=== PATIENT | male | born 1950 | race Two or more races ===

== ENCOUNTER 2020-11-25 12:37 | Inpatient (IN) | payer MEDICARE, OTHER ==
[~2020-11-25] VITALS: Ht 182.9 cm; Wt 145.1 kg
[2020-11-25] MEDS ORDERED: AZITHROMYCIN 500MG/ 250ML 250 ML IV ONE (12:45)
[2020-11-25] MEDS ORDERED: methylPREDNISolone SOD SUCC 125 MG/2 ML VL IV ONE (12:45)
[2020-11-25 13:13] LABS: Basophils # (auto) 0.1 10 ^3/uL (0-0.2); Basophils % (auto) 0.7 % (0.0-2.0); Eosinophils # (auto) 0 10 ^3/uL (0-0.8); Eosinophils % (auto) 0.1 % (0.0-7.0); Hematocrit 45.2 % (41.0-53.0); Hemoglobin 15.4 g/dL (13.5-17.5); Lymphocytes # (auto) 0.5 10 ^3/uL (0.4-5.4); Lymphocytes % (auto) 3.4 % (10.0-50.0); Mean Corpuscular Hemoglobin 29.2 pg (28.0-32.0); Mean Corpuscular Hgb Conc. 34.2 g/dL (32.0-36.0); Mean Corpuscular Volume 85.3 fL (80.0-100.0); Monocytes # (auto) 0.7 10 ^3/uL (0-1.3); Monocytes % (auto) 5.2 % (0.0-12.0); Neutrophils # (auto) 12.7 10 ^3/uL (1.6-8.6); Neutrophils % (auto) 90.6 % (37.0-80.0); Nucleated Red Blood Cells % 0.1 %; Red Cell Distribution Width 14.2 % (11.8-14.3)
[2020-11-25 13:30] LABS: Potassium 3.7 mmol/L (3.5-5.1)
[2020-11-25 13:39] LABS: Albumin 2.7 g/dL (3.4-5.0); BUN/Creatinine Ratio 23.1; Calcium 7.9 mg/dL (8.5-10.1); Magnesium 2.1 mg/dL (1.6-2.6); Total Protein 7.5 g/dL (6.4-8.2)
[2020-11-25] MEDS ORDERED: REMDESIVIR PER PHARMACY 0 ML IV SCH (16:30)
[2020-11-25] MEDS ORDERED: NITROGLYCERIN 0.4 MG SL TAB SL PRN (16:30)
[2020-11-25] MEDS ORDERED: MORPHINE SULFATE INJECTION 2 MG/ML SYRG IV PRN (16:30)
[2020-11-25] MEDS ORDERED: KETOROLAC TROMETH 30 MG/ML 1ML VIAL IV ONE (17:30)
[2020-11-25] MEDS ORDERED: ONDANSETRON HCL 4 MG/2 ML VIAL IV PRN (17:30)
[2020-11-25] MEDS ORDERED: IOHEXOL 350 MG/ML 100ML IJ ONE (18:32)
[2020-11-25 19:01] VITALS: BP 132/99
[2020-11-25] MEDS: cefTRIAXone 1GM/50ML D5W 50 ML IV SCH (21:18)
[2020-11-25] MEDS: BUDESONIDE (INHALATION) 180 MCG IH IN SCH (22:00)
[2020-11-25] MEDS ORDERED: REMDESIVIR 200 MG in NS 210ml LOADING DOSE ADULT IV ONE (22:00)
[2020-11-25] MEDS: ENOXAPARIN SOD 100 MG/1 ML SYRINGE SC SCH (22:20)
[2020-11-26] VITALS (34 sets, daily range): BP systolic 111–170; BP diastolic 71–119
[2020-11-26 06:03] LABS: Urine Bacteria FEW /hpf (None Seen); Urine Blood TRACE /uL (Negative); Urine Hyaline Cast MANY /lpf (0 - 2); Urine Mucus FEW (None Seen); Urine Specific Gravity 1.026 (1.001-1.035); Urine WBC 4 /hpf (0 - 3)
[2020-11-26] MEDS ORDERED: IVERMECTIN 3 MG TAB PO ONE (07:00)
[2020-11-26 07:02] LABS: Basophils # (auto) 0.1 10 ^3/uL (0-0.2); Basophils % (auto) 0.8 % (0.0-2.0); Eosinophils # (auto) 0 10 ^3/uL (0-0.8); Hematocrit 43.5 % (41.0-53.0); Lymphocytes # (auto) 0.6 10 ^3/uL (0.4-5.4); Lymphocytes % (auto) 4.2 % (10.0-50.0); Mean Corpuscular Hemoglobin 29.1 pg (28.0-32.0); Mean Corpuscular Hgb Conc. 34.6 g/dL (32.0-36.0); Mean Corpuscular Volume 84.3 fL (80.0-100.0); Monocytes # (auto) 1.1 10 ^3/uL (0-1.3); Monocytes % (auto) 7.6 % (0.0-12.0); Neutrophils # (auto) 13.1 10 ^3/uL (1.6-8.6); Neutrophils % (auto) 87.4 % (37.0-80.0); Red Blood Cells 5.16 10^6/uL (4.5-5.90); Red Cell Distribution Width 14.1 % (11.8-14.3)
[2020-11-26 07:18] LABS: Albumin 2.5 g/dL (3.4-5.0); Calcium 7.8 mg/dL (8.5-10.1); Potassium 4.1 mmol/L (3.5-5.1)
[2020-11-26 07:22] LABS: BUN/Creatinine Ratio 30.2; Bilirubin, Total 0.6 mg/dL (0.2-1.0); Total Protein 6.8 g/dL (6.4-8.2)
[2020-11-26] MEDS: ASCORBIC ACID 1,000 MG TAB PO SCH (09:47)
[2020-11-26] MEDS: DexAMETHasone SOD PHOS 10MG/1ML VIAL INJ IV SCH (09:47)
[2020-11-26] MEDS: cefTRIAXone 1GM/50ML D5W 50 ML IV SCH (09:47)
[2020-11-26] MEDS: ZINC SULFATE 220mg CAP or TAB PO SCH (09:47)
[2020-11-26] MEDS: CHOLECALCIFEROL (VITD3) 2,000 UNIT CAP/TAB PO SCH (09:47)
[2020-11-26] MEDS: ENOXAPARIN SOD 100 MG/1 ML SYRINGE SC SCH ×2 (09:48→21:21)
[2020-11-26] MEDS: ALBUTEROL SULF HFA 90MCG INH 200DOSE IN PRN ×2 (10:52→19:00)
[2020-11-26] MEDS: BUDESONIDE (INHALATION) 180 MCG IH IN SCH ×2 (10:52→19:00)
[2020-11-26] MEDS: AZITHROMYCIN 500MG/ 250ML 250 ML IV SCH (11:00)
[2020-11-26] MEDS ORDERED: POTASSIUM CHL 20 Meq TABLET PO ONE (12:30)
[2020-11-26] MEDS ORDERED: FUROSEMIDE 20 MG/2 ML VIAL IV ONE (12:30)
[2020-11-26] MEDS ORDERED: diphenhdrAMINE HCL 50 MG/1 ML VL IV ONE (13:30)
[2020-11-26] MEDS ORDERED: ACETAMINOPHEN 650 mg PER 20.3 mL UD PO ONE (13:30)
[2020-11-26] MEDS ORDERED: methylPREDNISolone SOD SUCC 40 MG/ML VL IV ONE (13:30)
[2020-11-26] MEDS ORDERED: TOCILIZUMAB 400 MG in SODIUM CHL 0.9% 80 ML IV ONE (14:00)
[2020-11-26] MEDS: IVERMECTIN 3 MG TAB PO SCH (16:30)
[2020-11-26] MEDS: REMDESIVIR 100mg 100 MG in SODIUM CHL 0.9% 230 ML IV SCH (17:37)
[2020-11-26] MEDS: Ensure HIGH Protein Chocolate 8oz Bottle PO SCH (18:00)
[2020-11-26] MEDS: LORazepam 2MG/ML-1ML VIAL IV PRN (21:35)
[2020-11-27] VITALS (36 sets, daily range): BP systolic 116–157; BP diastolic 66–114
[2020-11-27 06:16] LABS: Basophils # (auto) 0 10 ^3/uL (0-0.2); Basophils % (auto) 0.1 % (0.0-2.0); Eosinophils # (auto) 0 10 ^3/uL (0-0.8); Hematocrit 39.8 % (41.0-53.0); Lymphocytes # (auto) 0.7 10 ^3/uL (0.4-5.4); Lymphocytes % (auto) 5.1 % (10.0-50.0); Mean Corpuscular Hemoglobin 29.4 pg (28.0-32.0); Mean Corpuscular Hgb Conc. 35.2 g/dL (32.0-36.0); Mean Corpuscular Volume 83.6 fL (80.0-100.0); Monocytes % (auto) 6.8 % (0.0-12.0); Neutrophils # (auto) 12.4 10 ^3/uL (1.6-8.6); Red Blood Cells 4.76 10^6/uL (4.5-5.90); Red Cell Distribution Width 13.8 % (11.8-14.3); White Blood Cell 14.1 10^3/uL (4.4-10.8)
[2020-11-27] MEDS: BUDESONIDE (INHALATION) 180 MCG IH IN SCH ×2 (06:22→22:20)
[2020-11-27] MEDS: ALBUTEROL SULF HFA 90MCG INH 200DOSE IN PRN ×2 (06:22→22:20)
[2020-11-27 06:36] LABS: Albumin 2.3 g/dL (3.4-5.0); Calcium 7.9 mg/dL (8.5-10.1); Potassium 3.9 mmol/L (3.5-5.1)
[2020-11-27 06:41] LABS: BUN/Creatinine Ratio 35.7; Bilirubin, Total 0.5 mg/dL (0.2-1.0)
[2020-11-27] MEDS: Ensure HIGH Protein Chocolate 8oz Bottle PO SCH ×3 (08:22→18:00)
[2020-11-27] MEDS: cefTRIAXone 1GM/50ML D5W 50 ML IV SCH (09:00)
[2020-11-27] MEDS: POTASSIUM CHL 20 Meq TABLET PO SCH (09:50)
[2020-11-27] MEDS: CHOLECALCIFEROL (VITD3) 2,000 UNIT CAP/TAB PO SCH (09:50)
[2020-11-27] MEDS: ZINC SULFATE 220mg CAP or TAB PO SCH (09:50)
[2020-11-27] MEDS: ENOXAPARIN SOD 100 MG/1 ML SYRINGE SC SCH ×2 (09:50→21:00)
[2020-11-27] MEDS: ASCORBIC ACID 1,000 MG TAB PO SCH (09:50)
[2020-11-27] MEDS: IVERMECTIN 3 MG TAB PO SCH (09:50)
[2020-11-27] MEDS: FUROSEMIDE 20 MG/2 ML VIAL IV SCH (09:50)
[2020-11-27] MEDS ORDERED: ACETAMINOPHEN 650 mg PER 20.3 mL UD PO ONE (10:00)
[2020-11-27] MEDS ORDERED: diphenhdrAMINE HCL 50 MG/1 ML VL IV ONE (10:00)
[2020-11-27] MEDS ORDERED: TOCILIZUMAB 400 MG in SODIUM CHL 0.9% 80 ML IV ONE (10:30)
[2020-11-27] MEDS ORDERED: PROMETHAZINE W/CODEINE 5 ML ORAL SYRUP PO PRN (11:00)
[2020-11-27] MEDS: DexAMETHasone SOD PHOS 10MG/1ML VIAL INJ IV SCH (11:04)
[2020-11-27] MEDS: AZITHROMYCIN 500MG/ 250ML 250 ML IV SCH (11:51)
[2020-11-27] MEDS: REMDESIVIR 100mg 100 MG in SODIUM CHL 0.9% 230 ML IV SCH (15:00)
[2020-11-27] MEDS: LORazepam 2MG/ML-1ML VIAL IV PRN (21:00)
[2020-11-28] VITALS (17 sets, daily range): BP systolic 122–155; BP diastolic 59–96
[2020-11-28 06:18] LABS: Basophils # (auto) 0 10 ^3/uL (0-0.2); Basophils % (auto) 0.2 % (0.0-2.0); Eosinophils # (auto) 0 10 ^3/uL (0-0.8); Eosinophils % (auto) 0.3 % (0.0-7.0); Hemoglobin 14.5 g/dL (13.5-17.5); Lymphocytes # (auto) 0.7 10 ^3/uL (0.4-5.4); Lymphocytes % (auto) 6.4 % (10.0-50.0); Mean Corpuscular Hemoglobin 29.2 pg (28.0-32.0); Mean Corpuscular Hgb Conc. 34.5 g/dL (32.0-36.0); Mean Corpuscular Volume 84.6 fL (80.0-100.0); Monocytes # (auto) 0.4 10 ^3/uL (0-1.3); Monocytes % (auto) 3.6 % (0.0-12.0); Neutrophils # (auto) 9.3 10 ^3/uL (1.6-8.6); Neutrophils % (auto) 89.5 % (37.0-80.0); Nucleated Red Blood Cells % 0.1 %; Red Blood Cells 4.97 10^6/uL (4.5-5.90); Red Cell Distribution Width 14.4 % (11.8-14.3); White Blood Cell 10.4 10^3/uL (4.4-10.8)
[2020-11-28] MEDS: ALBUTEROL SULF HFA 90MCG INH 200DOSE IN PRN ×2 (06:26→22:25)
[2020-11-28] MEDS: BUDESONIDE (INHALATION) 180 MCG IH IN SCH ×2 (06:27→22:25)
[2020-11-28 06:38] LABS: Potassium 4.6 mmol/L (3.5-5.1)
[2020-11-28 06:55] LABS: Albumin 2.5 g/dL (3.4-5.0); BUN/Creatinine Ratio 27.3; Bilirubin, Total 0.7 mg/dL (0.2-1.0); Calcium 7.7 mg/dL (8.5-10.1); Total Protein 6.3 g/dL (6.4-8.2)
[2020-11-28] MEDS: cefTRIAXone 1GM/50ML D5W 50 ML IV SCH (08:51)
[2020-11-28] MEDS: Ensure HIGH Protein Chocolate 8oz Bottle PO SCH ×3 (09:23→18:00)
[2020-11-28] MEDS: ENOXAPARIN SOD 100 MG/1 ML SYRINGE SC SCH ×2 (10:03→20:14)
[2020-11-28] MEDS: FUROSEMIDE 20 MG/2 ML VIAL IV SCH ×2 (10:03→20:13)
[2020-11-28] MEDS: ASCORBIC ACID 1,000 MG TAB PO SCH (10:04)
[2020-11-28] MEDS: IVERMECTIN 3 MG TAB PO SCH (10:04)
[2020-11-28] MEDS: CHOLECALCIFEROL (VITD3) 2,000 UNIT CAP/TAB PO SCH (10:04)
[2020-11-28] MEDS: ZINC SULFATE 220mg CAP or TAB PO SCH (10:04)
[2020-11-28] MEDS: POTASSIUM CHL 20 Meq TABLET PO SCH ×2 (10:04→20:14)
[2020-11-28] MEDS: AZITHROMYCIN 500MG/ 250ML 250 ML IV SCH (10:05)
[2020-11-28] MEDS: DexAMETHasone SOD PHOS 10MG/1ML VIAL INJ IV SCH (10:05)
[2020-11-28] MEDS: REMDESIVIR 100mg 100 MG in SODIUM CHL 0.9% 230 ML IV SCH (15:16)
[2020-11-28] MEDS: LORazepam 2MG/ML-1ML VIAL IV PRN (21:08)
[2020-11-29] VITALS (27 sets, daily range): BP systolic 88–150; BP diastolic 45–98
[2020-11-29 05:57] LABS: Albumin 2.6 g/dL (3.4-5.0); Calcium 7.6 mg/dL (8.5-10.1); Magnesium 2.3 mg/dL (1.6-2.6); Potassium 4.6 mmol/L (3.5-5.1)
[2020-11-29 06:01] LABS: BUN/Creatinine Ratio 24.4; Bilirubin, Total 0.9 mg/dL (0.2-1.0)
[2020-11-29] MEDS: BUDESONIDE (INHALATION) 180 MCG IH IN SCH ×2 (06:13→22:26)
[2020-11-29] MEDS: ALBUTEROL SULF HFA 90MCG INH 200DOSE IN PRN ×2 (06:13→22:26)
[2020-11-29] MEDS: Ensure HIGH Protein Chocolate 8oz Bottle PO SCH ×3 (08:39→18:50)
[2020-11-29] MEDS: cefTRIAXone 1GM/50ML D5W 50 ML IV SCH (08:59)
[2020-11-29] MEDS: POTASSIUM CHL 20 Meq TABLET PO SCH (09:22)
[2020-11-29] MEDS: ZINC SULFATE 220mg CAP or TAB PO SCH (09:22)
[2020-11-29] MEDS: ASCORBIC ACID 1,000 MG TAB PO SCH (09:23)
[2020-11-29] MEDS: CHOLECALCIFEROL (VITD3) 2,000 UNIT CAP/TAB PO SCH (09:23)
[2020-11-29] MEDS: DexAMETHasone SOD PHOS 10MG/1ML VIAL INJ IV SCH (10:35)
[2020-11-29] MEDS: ENOXAPARIN SOD 100 MG/1 ML SYRINGE SC SCH (10:36)
[2020-11-29] MEDS: FUROSEMIDE 20 MG/2 ML VIAL IV SCH (10:36)
[2020-11-29] MEDS: IVERMECTIN 3 MG TAB PO SCH (10:36)
[2020-11-29] MEDS: AZITHROMYCIN 500MG/ 250ML 250 ML IV SCH (10:36)
[2020-11-29] MEDS ORDERED: CLINIMIX PER PHARMACY 0 ML IV SCH (12:00)
[2020-11-29] MEDS: REMDESIVIR 100mg 100 MG in SODIUM CHL 0.9% 230 ML IV SCH (14:57)
[2020-11-29] MEDS: LORazepam 2MG/ML-1ML VIAL IV PRN ×2 (16:40→20:30)
[2020-11-29] MEDS ORDERED: AMINO ACID INFUSION IN D10W 1,000 ML IV NR (20:00)
[2020-11-29] MEDS: traMADol HCL 50 MG TAB PO PRN (21:06)
[2020-11-30] VITALS (7 sets, daily range): BP systolic 119–150; BP diastolic 68–90
[2020-11-30] MEDS ORDERED: DEXTROSE (50%) 50ML SYRG IV SCH
[2020-11-30] MEDS: ENOXAPARIN SOD 100 MG/1 ML SYRINGE SC SCH ×3 (03:12→21:37)
[2020-11-30] MEDS: POTASSIUM CHL 20 Meq TABLET PO SCH ×3 (03:12→21:37)
[2020-11-30] MEDS: FUROSEMIDE 20 MG/2 ML VIAL IV SCH ×3 (03:12→21:36)
[2020-11-30] MEDS: MORPHINE SULFATE INJECTION 2 MG/ML SYRG IV PRN ×2 (03:14→23:51)
[2020-11-30 05:46] LABS: Albumin 2.9 g/dL (3.4-5.0); BUN/Creatinine Ratio 26.8; Calcium 8.3 mg/dL (8.5-10.1); Magnesium 2.4 mg/dL (1.6-2.6); Potassium 4.4 mmol/L (3.5-5.1)
[2020-11-30 05:50] LABS: Bilirubin, Total 0.5 mg/dL (0.2-1.0); Phosphorus 4.5 mg/dL (2.5-4.90); Total Protein 6.7 g/dL (6.4-8.2)
[2020-11-30] MEDS: ACCU-CHEK COMFORT CURVE STRIP VI SCH ×5 (06:00→23:54)
[2020-11-30] MEDS: InsuLIN REG 1unit/0.01ml Soln (100units/ml) SC SCH ×5 (06:00→23:52)
[2020-11-30] MEDS: ALBUTEROL SULF HFA 90MCG INH 200DOSE IN PRN (06:19)
[2020-11-30] MEDS: BUDESONIDE (INHALATION) 180 MCG IH IN SCH ×2 (06:20→22:00)
[2020-11-30] MEDS: Ensure HIGH Protein Chocolate 8oz Bottle PO SCH ×3 (07:58→18:19)
[2020-11-30] MEDS: cefTRIAXone 1GM/50ML D5W 50 ML IV SCH (09:08)
[2020-11-30] MEDS: ZINC SULFATE 220mg CAP or TAB PO SCH (09:08)
[2020-11-30] MEDS: ASCORBIC ACID 1,000 MG TAB PO SCH (09:09)
[2020-11-30] MEDS: IVERMECTIN 3 MG TAB PO SCH (09:09)
[2020-11-30] MEDS: CHOLECALCIFEROL (VITD3) 2,000 UNIT CAP/TAB PO SCH (09:09)
[2020-11-30] MEDS: AZITHROMYCIN 500MG/ 250ML 250 ML IV SCH (10:34)
[2020-11-30] MEDS: DexAMETHasone SOD PHOS 10MG/1ML VIAL INJ IV SCH (11:15)
[2020-11-30] MEDS ORDERED: AMINO ACID INFUSION IN D10W 1,000 ML IV NR (20:00)
[2020-11-30] MEDS: ZOLPIDEM TARTRATE 5 MG TAB PO PRN (21:36)
[2020-12-01] VITALS (9 sets, daily range): BP systolic 107–126; BP diastolic 66–83
[2020-12-01 05:46] LABS: Potassium 4.5 mmol/L (3.5-5.1)
[2020-12-01 05:47] LABS: Lactic Acid w/Reflex 2.1 mmol/L (0.4-2.0)
[2020-12-01 05:54] LABS: Albumin 2.8 g/dL (3.4-5.0); BUN/Creatinine Ratio 32.9; Bilirubin, Total 0.5 mg/dL (0.2-1.0); CRP High Sensitivity 0.55 mg/dL (< 0.3); Calcium 8.6 mg/dL (8.5-10.1); Magnesium 2.3 mg/dL (1.6-2.6); Phosphorus 4.3 mg/dL (2.5-4.90); Total Protein 6.4 g/dL (6.4-8.2)
[2020-12-01 05:58] LABS: Hematocrit 43.7 % (41.0-53.0); Mean Corpuscular Hemoglobin 29.1 pg (28.0-32.0); Mean Corpuscular Hgb Conc. 34.3 g/dL (32.0-36.0); Red Blood Cells 5.15 10^6/uL (4.5-5.90); Red Cell Distribution Width 14.2 % (11.8-14.3); White Blood Cell 15.9 10^3/uL (4.4-10.8)
[2020-12-01] MEDS: InsuLIN REG 1unit/0.01ml Soln (100units/ml) SC SCH ×3 (06:00→17:57)
[2020-12-01] MEDS: ACCU-CHEK COMFORT CURVE STRIP VI SCH ×3 (06:00→17:57)
[2020-12-01 06:04] LABS: Band Neutrophils % (manual) 0; Basophils % (manual) 0 (0.0-2.0); Blast Cells 0; Eosinophils % (manual) 0 (0-7); Metamyelocytes % 0; Myelocytes % 0; Promyelocytes % 0; Reactive Lymphocytes 0
[2020-12-01 06:42] LABS: Lymphocytes % (manual) 2 (10.0-50.0); Monocytes % (manual) 4 (0-12)
[2020-12-01] MEDS: BUDESONIDE (INHALATION) 180 MCG IH IN SCH ×2 (07:30→19:04)
[2020-12-01] MEDS: Ensure HIGH Protein Chocolate 8oz Bottle PO SCH ×3 (07:45→17:56)
[2020-12-01] MEDS: MORPHINE SULFATE INJECTION 2 MG/ML SYRG IV PRN ×2 (08:30→20:33)
[2020-12-01] MEDS: cefTRIAXone 1GM/50ML D5W 50 ML IV SCH (09:26)
[2020-12-01] MEDS: FUROSEMIDE 20 MG/2 ML VIAL IV SCH ×2 (09:26→22:00)
[2020-12-01] MEDS: DexAMETHasone SOD PHOS 10MG/1ML VIAL INJ IV SCH (09:26)
[2020-12-01] MEDS: ZINC SULFATE 220mg CAP or TAB PO SCH (09:28)
[2020-12-01] MEDS: CHOLECALCIFEROL (VITD3) 2,000 UNIT CAP/TAB PO SCH (09:29)
[2020-12-01] MEDS: ASCORBIC ACID 1,000 MG TAB PO SCH (09:29)
[2020-12-01] MEDS: POTASSIUM CHL 20 Meq TABLET PO SCH ×2 (09:29→22:00)
[2020-12-01] MEDS: ENOXAPARIN SOD 100 MG/1 ML SYRINGE SC SCH ×2 (09:29→22:00)
[2020-12-01] MEDS: traMADol HCL 50 MG TAB PO PRN ×2 (14:15→22:45)
[2020-12-01] MEDS: ALBUTEROL SULF HFA 90MCG INH 200DOSE IN PRN (19:04)
[2020-12-01] MEDS ORDERED: AMINO ACID INFUSION IN D10W 1,000 ML IV NR (20:00)
[2020-12-02] VITALS (10 sets, daily range): BP systolic 107–137; BP diastolic 65–89
[2020-12-02 05:41] LABS: Potassium 4.8 mmol/L (3.5-5.1)
[2020-12-02 05:47] LABS: BUN/Creatinine Ratio 35.6; Bilirubin, Total 0.6 mg/dL (0.2-1.0); Calcium 8.4 mg/dL (8.5-10.1); Magnesium 2.4 mg/dL (1.6-2.6); Phosphorus 4.6 mg/dL (2.5-4.90); Total Protein 6.8 g/dL (6.4-8.2)
[2020-12-02] MEDS: ACCU-CHEK COMFORT CURVE STRIP VI SCH ×4 (06:00→17:57)
[2020-12-02] MEDS: InsuLIN REG 1unit/0.01ml Soln (100units/ml) SC SCH ×4 (06:00→18:00)
[2020-12-02] MEDS: ALBUTEROL SULF HFA 90MCG INH 200DOSE IN PRN ×2 (06:28→22:12)
[2020-12-02] MEDS: BUDESONIDE (INHALATION) 180 MCG IH IN SCH ×2 (06:28→22:12)
[2020-12-02] MEDS: FUROSEMIDE 20 MG/2 ML VIAL IV SCH ×2 (09:21→22:02)
[2020-12-02] MEDS: DexAMETHasone SOD PHOS 10MG/1ML VIAL INJ IV SCH (09:21)
[2020-12-02] MEDS: Ensure HIGH Protein Chocolate 8oz Bottle PO SCH ×3 (09:21→17:57)
[2020-12-02] MEDS: cefTRIAXone 1GM/50ML D5W 50 ML IV SCH (09:21)
[2020-12-02] MEDS: ZINC SULFATE 220mg CAP or TAB PO SCH (09:21)
[2020-12-02] MEDS: POTASSIUM CHL 20 Meq TABLET PO SCH ×2 (09:22→21:58)
[2020-12-02] MEDS: ASCORBIC ACID 1,000 MG TAB PO SCH (09:22)
[2020-12-02] MEDS: CHOLECALCIFEROL (VITD3) 2,000 UNIT CAP/TAB PO SCH (09:22)
[2020-12-02] MEDS: MORPHINE SULFATE INJECTION 2 MG/ML SYRG IV PRN ×2 (10:00→20:14)
[2020-12-02] MEDS: ENOXAPARIN SOD 100 MG/1 ML SYRINGE SC SCH ×2 (13:13→21:57)
[2020-12-02] MEDS: traMADol HCL 50 MG TAB PO PRN (13:14)
[2020-12-02] MEDS ORDERED: AMINO ACID INFUSION IN D10W 1,000 ML IV NR (20:00)
[2020-12-02] MEDS: ZOLPIDEM TARTRATE 5 MG TAB PO PRN (22:02)
[2020-12-03] VITALS (15 sets, daily range): BP systolic 111–134; BP diastolic 60–82
[2020-12-03] MEDS: MORPHINE SULFATE INJECTION 2 MG/ML SYRG IV PRN ×3 (00:48→11:54)
[2020-12-03] MEDS: LORazepam 2MG/ML-1ML VIAL IV PRN ×3 (02:14→23:45)
[2020-12-03 05:20] LABS: Hematocrit 44.2 % (41.0-53.0); Hemoglobin 15.4 g/dL (13.5-17.5); Mean Corpuscular Hemoglobin 29.9 pg (28.0-32.0); Mean Corpuscular Hgb Conc. 34.8 g/dL (32.0-36.0); Mean Corpuscular Volume 85.8 fL (80.0-100.0); Red Blood Cells 5.15 10^6/uL (4.5-5.90); Red Cell Distribution Width 14.8 % (11.8-14.3); White Blood Cell 21.4 10^3/uL (4.4-10.8)
[2020-12-03 05:37] LABS: Basophils % (manual) 0 (0.0-2.0); Blast Cells 0; Metamyelocytes % 0; Myelocytes % 0; Promyelocytes % 0; Reactive Lymphocytes 0
[2020-12-03 05:39] LABS: Albumin 3.1 g/dL (3.4-5.0); Calcium 8.5 mg/dL (8.5-10.1); Potassium 4.9 mmol/L (3.5-5.1)
[2020-12-03 05:45] LABS: BUN/Creatinine Ratio 41.6; Bilirubin, Total 0.5 mg/dL (0.2-1.0); Magnesium 2.7 mg/dL (1.6-2.6); Phosphorus 4.5 mg/dL (2.5-4.90); Total Protein 6.9 g/dL (6.4-8.2)
[2020-12-03] MEDS: InsuLIN REG 1unit/0.01ml Soln (100units/ml) SC SCH ×4 (06:00→18:00)
[2020-12-03] MEDS: ALBUTEROL SULF HFA 90MCG INH 200DOSE IN PRN ×2 (06:18→22:21)
[2020-12-03] MEDS: BUDESONIDE (INHALATION) 180 MCG IH IN SCH ×2 (06:18→22:21)
[2020-12-03] MEDS: ACCU-CHEK COMFORT CURVE STRIP VI SCH ×4 (06:25→18:00)
[2020-12-03 07:17] LABS: Band Neutrophils % (manual) 1; Eosinophils % (manual) 1 (0-7); Lymphocytes % (manual) 1 (10.0-50.0); Monocytes % (manual) 6 (0-12)
[2020-12-03] MEDS: Ensure HIGH Protein Chocolate 8oz Bottle PO SCH ×3 (08:00→18:00)
[2020-12-03] MEDS: POTASSIUM CHL 20 Meq TABLET PO SCH ×2 (10:00→22:20)
[2020-12-03] MEDS: ZINC SULFATE 220mg CAP or TAB PO SCH (10:17)
[2020-12-03] MEDS: DexAMETHasone SOD PHOS 10MG/1ML VIAL INJ IV SCH (10:17)
[2020-12-03] MEDS: cefTRIAXone 1GM/50ML D5W 50 ML IV SCH (10:17)
[2020-12-03] MEDS: FUROSEMIDE 20 MG/2 ML VIAL IV SCH ×2 (10:17→22:19)
[2020-12-03] MEDS: ENOXAPARIN SOD 100 MG/1 ML SYRINGE SC SCH ×2 (10:18→22:20)
[2020-12-03] MEDS: ASCORBIC ACID 1,000 MG TAB PO SCH (10:18)
[2020-12-03] MEDS: CHOLECALCIFEROL (VITD3) 2,000 UNIT CAP/TAB PO SCH (10:18)
[2020-12-03] MEDS: PIPERACILLIN-TAZOB 3.375GM 100 ML IV SCH ×2 (15:01→22:20)
[2020-12-03] MEDS ORDERED: AMINO ACID INFUSION IN D10W 1,000 ML IV NR (20:00)
[2020-12-03] MEDS: ZOLPIDEM TARTRATE 5 MG TAB PO PRN (22:20)
[2020-12-04] VITALS (17 sets, daily range): BP systolic 90–142; BP diastolic 42–85
[2020-12-04] MEDS: ACCU-CHEK COMFORT CURVE STRIP VI SCH ×4 (00:27→18:00)
[2020-12-04] MEDS: traMADol HCL 50 MG TAB PO PRN (00:28)
[2020-12-04] MEDS: MORPHINE SULFATE INJECTION 2 MG/ML SYRG IV PRN ×3 (03:15→18:24)
[2020-12-04 05:11] LABS: Basophils # (auto) 0 10 ^3/uL (0-0.2); Basophils % (auto) 0.2 % (0.0-2.0); Eosinophils # (auto) 0.1 10 ^3/uL (0-0.8); Eosinophils % (auto) 0.3 % (0.0-7.0); Hematocrit 45.3 % (41.0-53.0); Hemoglobin 15.5 g/dL (13.5-17.5); Lymphocytes # (auto) 0.8 10 ^3/uL (0.4-5.4); Mean Corpuscular Hemoglobin 30.1 pg (28.0-32.0); Mean Corpuscular Hgb Conc. 34.3 g/dL (32.0-36.0); Mean Corpuscular Volume 87.8 fL (80.0-100.0); Monocytes # (auto) 1.1 10 ^3/uL (0-1.3); Monocytes % (auto) 5.8 % (0.0-12.0); Neutrophils # (auto) 17.4 10 ^3/uL (1.6-8.6); Neutrophils % (auto) 89.7 % (37.0-80.0); Red Blood Cells 5.16 10^6/uL (4.5-5.90); White Blood Cell 19.4 10^3/uL (4.4-10.8)
[2020-12-04] MEDS: PIPERACILLIN-TAZOB 3.375GM 100 ML IV SCH ×3 (05:57→22:39)
[2020-12-04] MEDS: InsuLIN REG 1unit/0.01ml Soln (100units/ml) SC SCH ×4 (06:00→18:00)
[2020-12-04] MEDS: BUDESONIDE (INHALATION) 180 MCG IH IN SCH ×2 (06:50→19:36)
[2020-12-04] MEDS: ALBUTEROL SULF HFA 90MCG INH 200DOSE IN PRN ×2 (06:51→19:36)
[2020-12-04] MEDS: Ensure HIGH Protein Chocolate 8oz Bottle PO SCH ×3 (09:03→18:23)
[2020-12-04] MEDS: DexAMETHasone SOD PHOS 10MG/1ML VIAL INJ IV SCH (09:04)
[2020-12-04] MEDS: ENOXAPARIN SOD 100 MG/1 ML SYRINGE SC SCH (09:05)
[2020-12-04] MEDS: ASCORBIC ACID 1,000 MG TAB PO SCH (09:05)
[2020-12-04] MEDS: CHOLECALCIFEROL (VITD3) 2,000 UNIT CAP/TAB PO SCH (09:05)
[2020-12-04] MEDS: ZINC SULFATE 220mg CAP or TAB PO SCH (09:05)
[2020-12-04 09:19] LABS: Albumin 3.3 g/dL (3.4-5.0); Magnesium 2.6 mg/dL (1.6-2.6); Potassium 4.6 mmol/L (3.5-5.1)
[2020-12-04 09:22] LABS: BUN/Creatinine Ratio 41.9; Bilirubin, Total 0.7 mg/dL (0.2-1.0); Phosphorus 4.2 mg/dL (2.5-4.90); Total Protein 7.4 g/dL (6.4-8.2)
[2020-12-04] MEDS: FUROSEMIDE 20 MG/2 ML VIAL IV SCH ×2 (09:22→22:39)
[2020-12-04] MEDS: POTASSIUM CHL 10 Meq TABLET PO SCH ×2 (10:22→22:40)
[2020-12-04] MEDS: LORazepam 2MG/ML-1ML VIAL IV PRN (19:35)
[2020-12-04] MEDS ORDERED: AMINO ACID INFUSION IN D10W 1,000 ML IV NR (20:00)
[2020-12-04] MEDS: ENOXAPARIN SOD 120 MG/0.8 ML SYRINGE SC SCH (22:40)
[2020-12-05] VITALS (20 sets, daily range): BP systolic 86–160; BP diastolic 48–85
[2020-12-05] MEDS: MORPHINE SULFATE INJECTION 2 MG/ML SYRG IV PRN ×5 (00:20→22:40)
[2020-12-05] MEDS: PIPERACILLIN-TAZOB 3.375GM 100 ML IV SCH ×3 (05:21→21:47)
[2020-12-05 05:26] LABS: Hematocrit 44.9 % (41.0-53.0); Hemoglobin 15.5 g/dL (13.5-17.5); Mean Corpuscular Hemoglobin 29.8 pg (28.0-32.0); Mean Corpuscular Hgb Conc. 34.6 g/dL (32.0-36.0); Mean Corpuscular Volume 86.1 fL (80.0-100.0); Red Blood Cells 5.21 10^6/uL (4.5-5.90); Red Cell Distribution Width 14.6 % (11.8-14.3); White Blood Cell 21.3 10^3/uL (4.4-10.8)
[2020-12-05 05:44] LABS: Potassium 4.7 mmol/L (3.5-5.1)
[2020-12-05 05:54] LABS: Albumin 2.9 g/dL (3.4-5.0); Bilirubin, Total 0.7 mg/dL (0.2-1.0); Calcium 8.5 mg/dL (8.5-10.1); Magnesium 2.5 mg/dL (1.6-2.6); Phosphorus 3.9 mg/dL (2.5-4.90); Total Protein 6.9 g/dL (6.4-8.2)
[2020-12-05] MEDS: ACCU-CHEK COMFORT CURVE STRIP VI SCH ×3 (06:00→11:54)
[2020-12-05] MEDS: InsuLIN REG 1unit/0.01ml Soln (100units/ml) SC SCH ×3 (06:00→11:55)
[2020-12-05 06:04] LABS: Basophils % (manual) 0 (0.0-2.0); Blast Cells 0; Metamyelocytes % 0; Myelocytes % 0; Promyelocytes % 0; Reactive Lymphocytes 0
[2020-12-05] MEDS: BUDESONIDE (INHALATION) 180 MCG IH IN SCH ×2 (06:45→18:48)
[2020-12-05] MEDS: ALBUTEROL SULF HFA 90MCG INH 200DOSE IN PRN ×2 (07:30→18:49)
[2020-12-05 07:31] LABS: Band Neutrophils % (manual) 11; Eosinophils % (manual) 1 (0-7); Lymphocytes % (manual) 4 (10.0-50.0); Monocytes % (manual) 4 (0-12)
[2020-12-05] MEDS: Ensure HIGH Protein Chocolate 8oz Bottle PO SCH ×4 (09:18→19:41)
[2020-12-05] MEDS: ENOXAPARIN SOD 120 MG/0.8 ML SYRINGE SC SCH ×2 (09:21→21:41)
[2020-12-05] MEDS: ZINC SULFATE 220mg CAP or TAB PO SCH (09:21)
[2020-12-05] MEDS: LORazepam 2MG/ML-1ML VIAL IV PRN ×2 (09:21→21:00)
[2020-12-05] MEDS: ASCORBIC ACID 1,000 MG TAB PO SCH (09:21)
[2020-12-05] MEDS: CHOLECALCIFEROL (VITD3) 2,000 UNIT CAP/TAB PO SCH (09:21)
[2020-12-05] MEDS: FUROSEMIDE 20 MG/2 ML VIAL IV SCH ×2 (09:21→21:52)
[2020-12-05] MEDS: POTASSIUM CHL 10 Meq TABLET PO SCH ×2 (09:22→21:42)
[2020-12-05] MEDS: DexAMETHasone SOD PHOS 10MG/1ML VIAL INJ IV SCH (09:22)
[2020-12-05] MEDS: LINEZOLID 600MG/300ML 300 ML IV SCH (18:09)
[2020-12-06] VITALS (28 sets, daily range): BP systolic 87–149; BP diastolic 53–94
[2020-12-06] MEDS: LINEZOLID 600MG/300ML 300 ML IV SCH ×2 (06:00→17:40)
[2020-12-06] MEDS: BUDESONIDE (INHALATION) 180 MCG IH IN SCH ×2 (07:21→22:33)
[2020-12-06] MEDS: ALBUTEROL SULF HFA 90MCG INH 200DOSE IN PRN (07:21)
[2020-12-06] MEDS: Ensure HIGH Protein Chocolate 8oz Bottle PO SCH ×3 (08:00→17:40)
[2020-12-06] MEDS: FUROSEMIDE 20 MG/2 ML VIAL IV SCH ×2 (09:09→17:40)
[2020-12-06] MEDS: DexAMETHasone SOD PHOS 10MG/1ML VIAL INJ IV SCH (09:09)
[2020-12-06] MEDS: MORPHINE SULFATE INJECTION 2 MG/ML SYRG IV PRN ×5 (09:10→22:04)
[2020-12-06] MEDS: ENOXAPARIN SOD 120 MG/0.8 ML SYRINGE SC SCH ×2 (09:10→21:01)
[2020-12-06 09:35] LABS: Basophils # (auto) 0.1 10 ^3/uL (0-0.2); Basophils % (auto) 0.4 % (0.0-2.0); Eosinophils # (auto) 0.1 10 ^3/uL (0-0.8); Eosinophils % (auto) 0.4 % (0.0-7.0); Hemoglobin 15.8 g/dL (13.5-17.5); Lymphocytes # (auto) 0.6 10 ^3/uL (0.4-5.4); Lymphocytes % (auto) 2.5 % (10.0-50.0); Mean Corpuscular Hemoglobin 29.8 pg (28.0-32.0); Mean Corpuscular Hgb Conc. 34.4 g/dL (32.0-36.0); Mean Corpuscular Volume 86.7 fL (80.0-100.0); Monocytes # (auto) 1.3 10 ^3/uL (0-1.3); Monocytes % (auto) 5.3 % (0.0-12.0); Neutrophils # (auto) 21.9 10 ^3/uL (1.6-8.6); Neutrophils % (auto) 91.4 % (37.0-80.0); Nucleated Red Blood Cells % 0.4 %; Red Blood Cells 5.31 10^6/uL (4.5-5.90); White Blood Cell 23.9 10^3/uL (4.4-10.8)
[2020-12-06] MEDS: PIPERACILLIN-TAZOB 3.375GM 100 ML IV SCH ×3 (10:00→21:01)
[2020-12-06] MEDS: POTASSIUM CHL 10 Meq TABLET PO SCH ×2 (10:41→21:01)
[2020-12-06] MEDS: ZINC SULFATE 220mg CAP or TAB PO SCH (10:42)
[2020-12-06] MEDS: ASCORBIC ACID 1,000 MG TAB PO SCH (10:42)
[2020-12-06] MEDS: CHOLECALCIFEROL (VITD3) 2,000 UNIT CAP/TAB PO SCH (10:42)
[2020-12-06] MEDS: LORazepam 2MG/ML-1ML VIAL IV PRN ×2 (10:46→17:54)
[2020-12-06] MEDS ORDERED: CLINIMIX PER PHARMACY 0 ML IV SCH (12:30)
[2020-12-06 13:26] LABS: Albumin 3.2 g/dL (3.4-5.0); Calcium 9.1 mg/dL (8.5-10.1); Magnesium 2.7 mg/dL (1.6-2.6); Potassium 4.4 mmol/L (3.5-5.1)
[2020-12-06 13:32] LABS: BUN/Creatinine Ratio 37.1; Bilirubin, Total 0.5 mg/dL (0.2-1.0); Phosphorus 3.6 mg/dL (2.5-4.90); Pre Albumin 31.3 mg/dL (20.0-40.0); Total Protein 7.4 g/dL (6.4-8.2)
[2020-12-06] MEDS ORDERED: AMINO ACID INFUSION IN D10W 1,000 ML IV NR (20:00)
[2020-12-06] MEDS: ZOLPIDEM TARTRATE 5 MG TAB PO PRN (21:02)
[2020-12-06] MEDS: traMADol HCL 50 MG TAB PO PRN (21:05)
[2020-12-07] VITALS (31 sets, daily range): BP systolic 86–143; BP diastolic 58–98
[2020-12-07] MEDS ORDERED: DEXTROSE (50%) 50ML SYRG IV SCH
[2020-12-07] MEDS: ACCU-CHEK COMFORT CURVE STRIP VI SCH ×4 (00:12→18:28)
[2020-12-07] MEDS: InsuLIN REG 1unit/0.01ml Soln (100units/ml) SC SCH ×4 (00:13→18:00)
[2020-12-07] MEDS: LORazepam 2MG/ML-1ML VIAL IV PRN ×4 (03:28→23:54)
[2020-12-07] MEDS: LINEZOLID 600MG/300ML 300 ML IV SCH ×2 (05:07→18:27)
[2020-12-07 05:16] LABS: Hematocrit 43.2 % (41.0-53.0); Hemoglobin 14.8 g/dL (13.5-17.5); Mean Corpuscular Hemoglobin 29.7 pg (28.0-32.0); Mean Corpuscular Hgb Conc. 34.3 g/dL (32.0-36.0); Mean Corpuscular Volume 86.5 fL (80.0-100.0); Red Blood Cells 4.99 10^6/uL (4.5-5.90); Red Cell Distribution Width 14.8 % (11.8-14.3)
[2020-12-07 05:39] LABS: Band Neutrophils % (manual) 0; Basophils % (manual) 0 (0.0-2.0); Blast Cells 0; Metamyelocytes % 0; Myelocytes % 0; Promyelocytes % 0; Reactive Lymphocytes 0
[2020-12-07 05:43] LABS: Albumin 2.9 g/dL (3.4-5.0); Calcium 8.5 mg/dL (8.5-10.1); Magnesium 2.8 mg/dL (1.6-2.6); Potassium 4.5 mmol/L (3.5-5.1)
[2020-12-07 05:48] LABS: BUN/Creatinine Ratio 39.3; Bilirubin, Total 0.5 mg/dL (0.2-1.0); Phosphorus 3.5 mg/dL (2.5-4.90); Total Protein 6.8 g/dL (6.4-8.2)
[2020-12-07] MEDS: PIPERACILLIN-TAZOB 3.375GM 100 ML IV SCH ×3 (06:27→22:52)
[2020-12-07] MEDS: FUROSEMIDE 20 MG/2 ML VIAL IV SCH ×2 (06:28→18:00)
[2020-12-07] MEDS: ALBUTEROL SULF HFA 90MCG INH 200DOSE IN PRN ×3 (06:35→22:24)
[2020-12-07] MEDS: BUDESONIDE (INHALATION) 180 MCG IH IN SCH ×2 (06:35→22:24)
[2020-12-07 07:06] LABS: Eosinophils % (manual) 1 (0-7); Lymphocytes % (manual) 8 (10.0-50.0); Monocytes % (manual) 4 (0-12)
[2020-12-07] MEDS: MORPHINE SULFATE INJECTION 2 MG/ML SYRG IV PRN ×5 (07:30→22:53)
[2020-12-07] MEDS: Ensure HIGH Protein Chocolate 8oz Bottle PO SCH ×3 (08:00→18:28)
[2020-12-07] MEDS: ASCORBIC ACID 1,000 MG TAB PO SCH (10:23)
[2020-12-07] MEDS: ZINC SULFATE 220mg CAP or TAB PO SCH (10:23)
[2020-12-07] MEDS: POTASSIUM CHL 10 Meq TABLET PO SCH ×2 (10:24→22:52)
[2020-12-07] MEDS: DexAMETHasone SOD PHOS 10MG/1ML VIAL INJ IV SCH (10:24)
[2020-12-07] MEDS: ENOXAPARIN SOD 120 MG/0.8 ML SYRINGE SC SCH ×2 (10:24→22:52)
[2020-12-07] MEDS: CHOLECALCIFEROL (VITD3) 2,000 UNIT CAP/TAB PO SCH (10:24)
[2020-12-07] MEDS ORDERED: AMINO ACID INFUSION IN D10W 1,000 ML IV NR (20:00)
[2020-12-07] MEDS: ZOLPIDEM TARTRATE 5 MG TAB PO PRN (22:53)
[2020-12-08] VITALS (64 sets, daily range): BP systolic 78–157; BP diastolic 31–108
[2020-12-08 05:37] LABS: Albumin 2.9 g/dL (3.4-5.0); BUN/Creatinine Ratio 35.2; Calcium 8.5 mg/dL (8.5-10.1); Magnesium 2.5 mg/dL (1.6-2.6); Potassium 4.5 mmol/L (3.5-5.1)
[2020-12-08 05:40] LABS: Bilirubin, Total 0.5 mg/dL (0.2-1.0); Phosphorus 2.9 mg/dL (2.5-4.90); Total Protein 7.1 g/dL (6.4-8.2)
[2020-12-08] MEDS: LINEZOLID 600MG/300ML 300 ML IV SCH ×2 (05:57→18:05)
[2020-12-08] MEDS: FUROSEMIDE 20 MG/2 ML VIAL IV SCH ×2 (06:00→18:06)
[2020-12-08] MEDS: ACCU-CHEK COMFORT CURVE STRIP VI SCH ×4 (06:00→17:26)
[2020-12-08] MEDS: InsuLIN REG 1unit/0.01ml Soln (100units/ml) SC SCH ×3 (06:00→17:24)
[2020-12-08] MEDS: LORazepam 2MG/ML-1ML VIAL IV PRN (06:11)
[2020-12-08] MEDS: ALBUTEROL SULF HFA 90MCG INH 200DOSE IN PRN (06:45)
[2020-12-08] MEDS: Ensure HIGH Protein Chocolate 8oz Bottle PO SCH ×3 (08:00→17:27)
[2020-12-08] MEDS: PIPERACILLIN-TAZOB 3.375GM 100 ML IV SCH ×3 (09:15→22:30)
[2020-12-08] MEDS: CHOLECALCIFEROL (VITD3) 2,000 UNIT CAP/TAB PO SCH (09:42)
[2020-12-08] MEDS: ASCORBIC ACID 1,000 MG TAB PO SCH (09:42)
[2020-12-08] MEDS: POTASSIUM CHL 10 Meq TABLET PO SCH (09:42)
[2020-12-08] MEDS: DexAMETHasone SOD PHOS 10MG/1ML VIAL INJ IV SCH (09:43)
[2020-12-08] MEDS: ENOXAPARIN SOD 120 MG/0.8 ML SYRINGE SC SCH ×2 (09:43→22:30)
[2020-12-08] MEDS: ZINC SULFATE 220mg CAP or TAB PO SCH (09:43)
[2020-12-08] MEDS ORDERED: SUCCINYLCHOLINE CHLORIDE 20 MG/ML 10ML VIAL IV ONE ×2 (10:25→10:30)
[2020-12-08] MEDS ORDERED: ETOMIDATE (2MG/ML) 20ML VIAL IV ONE ×2 (10:25→10:30)
[2020-12-08] MEDS ORDERED: PROPOFOL 100 ML IV ONE (10:30)
[2020-12-08] MEDS ORDERED: PROPOFOL 100 ML IV SCH (10:45)
[2020-12-08] MEDS: PROPOFOL 100 ML IV SCH ×6 (11:00→21:35)
[2020-12-08] MEDS ORDERED: MIDAZOLAM DRIP 50 mg/50mL 50 ML IV ONE (11:26)
[2020-12-08] MEDS ORDERED: PHENYLEPHRINE IV 250 ML IV ONE ×2 (11:29→13:42)
[2020-12-08] MEDS ORDERED: dilTIAZem 25 MG/5 ML VIAL IV ONE ×2 (11:46→12:00)
[2020-12-08] MEDS ORDERED: AMIODARONE 450mg/250ml AE 250 ML IV ONE (12:05)
[2020-12-08] MEDS ORDERED: AMIODARONE 450mg/250ml AE 250 ML IV SCH (12:15)
[2020-12-08] MEDS ORDERED: SODIUM BICARBONATE 8.4 % INJ 50ML VIAL IV ONE ×2 (12:57→13:00)
[2020-12-08] MEDS: PHENYLEPHRINE INJ 40 MG in SODIUM CHL 0.9% 246 ML IV SCH ×3 (14:00→21:59)
[2020-12-08] MEDS: MIDAZOLAM DRIP 50 mg/50mL 50 ML IV SCH ×3 (14:00→22:01)
[2020-12-08] MEDS ORDERED: PHENYLEPHRINE IV 250 ML IV SCH (14:00)
[2020-12-08] MEDS: fentaNYL Drip 2500mCg/250mlNS 250 ML IV SCH (17:27)
[2020-12-08] MEDS: AMIODARONE 450mg/250ml AE 250 ML IV SCH (18:18)
[2020-12-08] MEDS ORDERED: AMINO ACID INFUSION IN D10W 1,000 ML IV SCH (20:00)
[2020-12-08] MEDS: BUDESONIDE (INHALATION) 0.5 MG/2 ML NEB NEB SCH (22:12)
[2020-12-08] MEDS: IPRATROPIUM BROM 0.5 MG/2.5ML INH SOL NEB SCH (22:12)
[2020-12-08] MEDS: ALBUTEROL SULF 2.5 MG/0.5ML(0.5%) NEB SOLN NEB SCH (22:12)
[2020-12-09] VITALS (108 sets, daily range): BP systolic 77–154; BP diastolic 44–79
[2020-12-09] MEDS: ACCU-CHEK COMFORT CURVE STRIP VI SCH ×4 (00:03→17:36)
[2020-12-09] MEDS: POTASSIUM CHL 10 Meq TABLET PO SCH (01:13)
[2020-12-09] MEDS: ACETAMINOPHEN 500 MG TAB PO PRN ×4 (01:14→22:09)
[2020-12-09] MEDS: SODIUM BICARBONATE 50ML VIAL 150 ML in D5W 5% 1,000 ML IV SCH ×2 (02:10→12:32)
[2020-12-09] MEDS: MIDAZOLAM DRIP 50 mg/50mL 50 ML IV SCH ×5 (02:15→22:09)
[2020-12-09] MEDS: PROPOFOL 100 ML IV SCH ×5 (02:15→17:01)
[2020-12-09] MEDS: PHENYLEPHRINE INJ 40 MG in SODIUM CHL 0.9% 246 ML IV SCH (04:35)
[2020-12-09] MEDS: LINEZOLID 600MG/300ML 300 ML IV SCH ×2 (05:08→17:01)
[2020-12-09 05:24] LABS: Albumin 2.8 g/dL (3.4-5.0); Bilirubin, Total 0.5 mg/dL (0.2-1.0); Calcium 7.3 mg/dL (8.5-10.1); Magnesium 3.2 mg/dL (1.6-2.6); Total Protein 7.1 g/dL (6.4-8.2)
[2020-12-09] MEDS: InsuLIN REG 1unit/0.01ml Soln (100units/ml) SC SCH ×4 (06:00→17:36)
[2020-12-09] MEDS: BUDESONIDE (INHALATION) 0.5 MG/2 ML NEB NEB SCH ×2 (06:14→22:14)
[2020-12-09] MEDS: ALBUTEROL SULF 2.5 MG/0.5ML(0.5%) NEB SOLN NEB SCH ×3 (06:14→22:15)
[2020-12-09] MEDS: IPRATROPIUM BROM 0.5 MG/2.5ML INH SOL NEB SCH ×3 (06:14→22:15)
[2020-12-09] MEDS: PIPERACILLIN-TAZOB 3.375GM 100 ML IV SCH ×3 (07:49→22:08)
[2020-12-09] MEDS: FUROSEMIDE 20 MG/2 ML VIAL IV SCH (07:49)
[2020-12-09] MEDS ORDERED: CALCIUM GLUC 1,000mg/50ml-NS 50 ML IV ONE (08:00)
[2020-12-09] MEDS: Ensure HIGH Protein Chocolate 8oz Bottle PO SCH (08:00)
[2020-12-09] MEDS ORDERED: ALBUMIN 5% 250 ML IV ONE (08:00)
[2020-12-09] MEDS ORDERED: InsuLIN REG 1unit/0.01ml Soln (100units/ml) IV ONE (08:00)
[2020-12-09] MEDS ORDERED: DEXTROSE (50%) 50ML SYRG IV ONE (08:00)
[2020-12-09] MEDS ORDERED: SODIUM ZIRCONIUM CYCL 10 GM PAK PO ONE (08:00)
[2020-12-09] MEDS ORDERED: SODIUM BICARBONATE 8.4 % INJ 50ML VIAL IV ONE (08:00)
[2020-12-09] MEDS: AMIODARONE 450mg/250ml AE 250 ML IV SCH (09:15)
[2020-12-09] MEDS ORDERED: NOREPINEPHRINE 8 MG/250ML KIT 250 ML IV ONE (09:18)
[2020-12-09] MEDS: ASCORBIC ACID 1,000 MG TAB PO SCH (09:28)
[2020-12-09] MEDS: PANTOPRAZOLE 40 MG/10 ML VIAL INJ IV SCH (09:28)
[2020-12-09] MEDS: ZINC SULFATE 220mg CAP or TAB PO SCH (09:28)
[2020-12-09] MEDS: DexAMETHasone SOD PHOS 10MG/1ML VIAL INJ IV SCH (09:29)
[2020-12-09] MEDS: ENOXAPARIN SOD 120 MG/0.8 ML SYRINGE SC SCH (09:29)
[2020-12-09] MEDS: CHOLECALCIFEROL (VITD3) 2,000 UNIT CAP/TAB PO SCH (09:29)
[2020-12-09] MEDS: NOREPINEPHRINE 8 MG/250ML KIT 250 ML IV SCH ×2 (10:00→22:31)
[2020-12-09] MEDS ORDERED: TPN PER PHARMACY 0 ML IV SCH (11:00)
[2020-12-09] MEDS ORDERED: PHENYLEPHRINE INJ 40 MG in SODIUM CHL 0.9% 246 ML IV SCH (11:00)
[2020-12-09] MEDS ORDERED: AMINO ACID INFUSION IN D10W 1,000 ML IV SCH (11:15)
[2020-12-09] MEDS: PHENYLEPHRINE INJ 80 MG in SODIUM CHL 0.9% 242 ML IV SCH ×2 (13:39→18:02)
[2020-12-09] MEDS: fentaNYL Drip 2500mCg/250mlNS 250 ML IV SCH ×2 (14:00→17:17)
[2020-12-09] MEDS ORDERED: TPN PER PHARMACY IV NR ×5 (20:00)
[2020-12-10] VITALS (103 sets, daily range): BP systolic 77–139; BP diastolic 50–72
[2020-12-10] MEDS: AMIODARONE 450mg/250ml AE 250 ML IV SCH ×2 (00:15→19:32)
[2020-12-10] MEDS ORDERED: SODIUM BICARBONATE 8.4 % INJ 50ML VIAL IV ONE (00:16)
[2020-12-10] MEDS ORDERED: PHENYLEPHRINE IV 250 ML IV ONE (00:31)
[2020-12-10] MEDS ORDERED: PHENYLEPHRINE HCL 10 MG/ML VL ONE (00:32)
[2020-12-10] MEDS: PHENYLEPHRINE INJ 80 MG in SODIUM CHL 0.9% 242 ML IV SCH (02:00)
[2020-12-10] MEDS: LINEZOLID 600MG/300ML 300 ML IV SCH ×2 (05:19→16:52)
[2020-12-10 05:20] LABS: Hematocrit 44.1 % (41.0-53.0); Hemoglobin 14.6 g/dL (13.5-17.5); Mean Corpuscular Hemoglobin 29.6 pg (28.0-32.0); Mean Corpuscular Hgb Conc. 33.1 g/dL (32.0-36.0); Mean Corpuscular Volume 89.2 fL (80.0-100.0); Red Blood Cells 4.95 10^6/uL (4.5-5.90); Red Cell Distribution Width 15.5 % (11.8-14.3)
[2020-12-10 05:25] LABS: Basophils % (manual) 0 (0.0-2.0); Blast Cells 0; Eosinophils % (manual) 0 (0-7); Myelocytes % 0; Promyelocytes % 0; Reactive Lymphocytes 0
[2020-12-10 05:36] LABS: Calcium 6.7 mg/dL (8.5-10.1)
[2020-12-10 05:39] LABS: Albumin 2.6 g/dL (3.4-5.0); BUN/Creatinine Ratio 13.1; Magnesium 2.8 mg/dL (1.6-2.6)
[2020-12-10 05:42] LABS: Bilirubin, Total 0.5 mg/dL (0.2-1.0); Total Protein 6.5 g/dL (6.4-8.2)
[2020-12-10] MEDS: InsuLIN REG 1unit/0.01ml Soln (100units/ml) SC SCH ×4 (05:58→17:29)
[2020-12-10] MEDS: ACCU-CHEK COMFORT CURVE STRIP VI SCH ×4 (05:59→17:40)
[2020-12-10] MEDS: PIPERACILLIN-TAZOB 3.375GM 100 ML IV SCH (06:00)
[2020-12-10 06:25] LABS: Band Neutrophils % (manual) 25; Lymphocytes % (manual) 3 (10.0-50.0); Metamyelocytes % 3; Monocytes % (manual) 5 (0-12)
[2020-12-10] MEDS: IPRATROPIUM BROM 0.5 MG/2.5ML INH SOL NEB SCH ×3 (06:57→22:01)
[2020-12-10] MEDS: ALBUTEROL SULF 2.5 MG/0.5ML(0.5%) NEB SOLN NEB SCH ×3 (06:57→22:01)
[2020-12-10] MEDS: BUDESONIDE (INHALATION) 0.5 MG/2 ML NEB NEB SCH ×2 (06:58→22:01)
[2020-12-10 07:25] LABS: Potassium 5.8 mmol/L (3.5-5.1)
[2020-12-10 07:26] LABS: Phosphorus 9.8 mg/dL (2.5-4.90)
[2020-12-10] MEDS ORDERED: ALBUTEROL SULF 2.5 MG/0.5ML(0.5%) NEB SOLN NEB ONE (08:00)
[2020-12-10] MEDS ORDERED: SODIUM CHL 0.9% 1000 ML BAG XX ONE (08:00)
[2020-12-10] MEDS ORDERED: SODIUM ZIRCONIUM CYCL 10 GM PAK PO ONE (08:00)
[2020-12-10] MEDS: NOREPINEPHRINE 8 MG/250ML KIT 250 ML IV SCH ×2 (09:26→19:28)
[2020-12-10] MEDS: DexAMETHasone SOD PHOS 10MG/1ML VIAL INJ IV SCH (10:00)
[2020-12-10] MEDS: PROPOFOL 100 ML IV SCH ×3 (10:21→22:57)
[2020-12-10] MEDS: MIDAZOLAM DRIP 50 mg/50mL 50 ML IV SCH ×4 (10:21→22:57)
[2020-12-10] MEDS: PANTOPRAZOLE 40 MG/10 ML VIAL INJ IV SCH (11:15)
[2020-12-10] MEDS: ENOXAPARIN SOD 120 MG/0.8 ML SYRINGE SC SCH (11:16)
[2020-12-10] MEDS: ASCORBIC ACID 1,000 MG TAB PO SCH (11:16)
[2020-12-10] MEDS: ZINC SULFATE 220mg CAP or TAB PO SCH (11:16)
[2020-12-10] MEDS: CHOLECALCIFEROL (VITD3) 2,000 UNIT CAP/TAB PO SCH (11:16)
[2020-12-10] MEDS ORDERED: CALCIUM GLUC 4.65meq/50ml D5AE 50 ML IV ONE (11:45)
[2020-12-10] MEDS: SODIUM BICARBONATE 50ML VIAL 150 ML in D5W 5% 1,000 ML IV SCH (13:24)
[2020-12-10] MEDS: SODIUM ZIRCONIUM CYCL 10 GM PAK PO SCH ×2 (14:22→22:10)
[2020-12-10] MEDS ORDERED: TPN PER PHARMACY IV SCH ×7 (20:00)
[2020-12-10] MEDS: MEROPENEM 1GM IVPB 100 ML IV SCH (22:09)
[2020-12-10] MEDS: ACETAMINOPHEN 500 MG TAB PO PRN (22:11)
[2020-12-11] VITALS (106 sets, daily range): BP systolic 91–124; BP diastolic 45–80
[2020-12-11] MEDS: PROPOFOL 100 ML IV SCH ×2 (00:38→05:22)
[2020-12-11] MEDS: MIDAZOLAM DRIP 50 mg/50mL 50 ML IV SCH ×4 (00:38→23:56)
[2020-12-11] MEDS: PHENYLEPHRINE INJ 80 MG in SODIUM CHL 0.9% 242 ML IV SCH ×2 (00:39→13:11)
[2020-12-11] MEDS: fentaNYL Drip 2500mCg/250mlNS 250 ML IV SCH ×2 (03:00→13:10)
[2020-12-11] MEDS: NOREPINEPHRINE 8 MG/250ML KIT 250 ML IV SCH ×2 (03:31→13:09)
[2020-12-11] MEDS: SODIUM BICARBONATE 50ML VIAL 150 ML in D5W 5% 1,000 ML IV SCH (03:35)
[2020-12-11] MEDS: LINEZOLID 600MG/300ML 300 ML IV SCH ×2 (05:19→17:13)
[2020-12-11] MEDS: InsuLIN REG 1unit/0.01ml Soln (100units/ml) SC SCH ×5 (06:00→23:55)
[2020-12-11] MEDS: ACCU-CHEK COMFORT CURVE STRIP VI SCH ×5 (06:00→23:54)
[2020-12-11] MEDS: SODIUM ZIRCONIUM CYCL 10 GM PAK PO SCH (06:59)
[2020-12-11] MEDS: IPRATROPIUM BROM 0.5 MG/2.5ML INH SOL NEB SCH ×3 (07:23→22:07)
[2020-12-11] MEDS: ALBUTEROL SULF 2.5 MG/0.5ML(0.5%) NEB SOLN NEB SCH ×3 (07:23→22:07)
[2020-12-11] MEDS: ENOXAPARIN SOD 120 MG/0.8 ML SYRINGE SC SCH (08:05)
[2020-12-11] MEDS: CHOLECALCIFEROL (VITD3) 2,000 UNIT CAP/TAB PO SCH (10:00)
[2020-12-11] MEDS: ZINC SULFATE 220mg CAP or TAB PO SCH (10:00)
[2020-12-11] MEDS: ASCORBIC ACID 1,000 MG TAB PO SCH (10:00)
[2020-12-11] MEDS: BUDESONIDE (INHALATION) 0.5 MG/2 ML NEB NEB SCH ×2 (10:03→22:07)
[2020-12-11] MEDS: DexAMETHasone SOD PHOS 10MG/1ML VIAL INJ IV SCH (10:11)
[2020-12-11] MEDS: PANTOPRAZOLE 40 MG/10 ML VIAL INJ IV SCH (10:11)
[2020-12-11] MEDS: MEROPENEM 1GM IVPB 100 ML IV SCH ×2 (10:40→21:52)
[2020-12-11] MEDS: AMIODARONE 450mg/250ml AE 250 ML IV SCH ×2 (11:15→23:55)
[2020-12-11 11:46] LABS: Hematocrit 37.4 % (41.0-53.0); Hemoglobin 12.4 g/dL (13.5-17.5); Mean Corpuscular Hemoglobin 29.2 pg (28.0-32.0); Mean Corpuscular Hgb Conc. 33.2 g/dL (32.0-36.0); Mean Corpuscular Volume 87.8 fL (80.0-100.0); Red Blood Cells 4.26 10^6/uL (4.5-5.90); Red Cell Distribution Width 15.2 % (11.8-14.3); White Blood Cell 27.1 10^3/uL (4.4-10.8)
[2020-12-11 11:54] LABS: Basophils % (manual) 0 (0.0-2.0); Blast Cells 0; Eosinophils % (manual) 0 (0-7); Metamyelocytes % 0; Myelocytes % 0; Promyelocytes % 0; Reactive Lymphocytes 0
[2020-12-11 12:15] LABS: Albumin 2.3 g/dL (3.4-5.0); Calcium 6.6 mg/dL (8.5-10.1); Magnesium 2.6 mg/dL (1.6-2.6); Potassium 4.4 mmol/L (3.5-5.1)
[2020-12-11 12:20] LABS: BUN/Creatinine Ratio 11.2; Bilirubin, Total 0.5 mg/dL (0.2-1.0); Phosphorus 8.6 mg/dL (2.5-4.90); Total Protein 6.2 g/dL (6.4-8.2)
[2020-12-11] MEDS ORDERED: BUMETANIDE 2.5mg/10ml (0.25 mg/ml) INJ IV ONE (12:30)
[2020-12-11] MEDS ORDERED: CALCIUM GLUC 1,000mg/50ml-NS 50 ML IV ONE (12:45)
[2020-12-11 12:56] LABS: Band Neutrophils % (manual) 1; Lymphocytes % (manual) 6 (10.0-50.0); Monocytes % (manual) 5 (0-12)
[2020-12-11] MEDS: BUMETANIDE 2.5mg/10ml (0.25 mg/ml) INJ IV SCH (17:11)
[2020-12-11] MEDS ORDERED: TPN PER PHARMACY IV NR ×8 (20:00)
[2020-12-12] VITALS (97 sets, daily range): BP systolic 76–128; BP diastolic 34–58
[2020-12-12] MEDS: NOREPINEPHRINE 8 MG/250ML KIT 250 ML IV SCH ×3 (02:44→16:00)
[2020-12-12 05:08] LABS: Hematocrit 37.6 % (41.0-53.0); Hemoglobin 11.8 g/dL (13.5-17.5); Mean Corpuscular Hemoglobin 28.1 pg (28.0-32.0); Mean Corpuscular Hgb Conc. 31.5 g/dL (32.0-36.0); Mean Corpuscular Volume 89.3 fL (80.0-100.0); Red Blood Cells 4.21 10^6/uL (4.5-5.90); Red Cell Distribution Width 15.2 % (11.8-14.3); White Blood Cell 26.6 10^3/uL (4.4-10.8)
[2020-12-12] MEDS: LINEZOLID 600MG/300ML 300 ML IV SCH ×2 (05:26→17:14)
[2020-12-12] MEDS: PHENYLEPHRINE INJ 80 MG in SODIUM CHL 0.9% 242 ML IV SCH ×2 (05:31→12:00)
[2020-12-12 05:32] LABS: Potassium 5.4 mmol/L (3.5-5.1)
[2020-12-12] MEDS: PROPOFOL 100 ML IV SCH ×2 (05:32→11:58)
[2020-12-12] MEDS: ACCU-CHEK COMFORT CURVE STRIP VI SCH ×4 (05:34→23:46)
[2020-12-12] MEDS: BUMETANIDE 2.5mg/10ml (0.25 mg/ml) INJ IV SCH ×2 (05:36→18:14)
[2020-12-12 05:44] LABS: Albumin 2.2 g/dL (3.4-5.0); BUN/Creatinine Ratio 11.7; Bilirubin, Total 0.6 mg/dL (0.2-1.0); Calcium 6.6 mg/dL (8.5-10.1); Magnesium 2.8 mg/dL (1.6-2.6); Total Protein 6.3 g/dL (6.4-8.2)
[2020-12-12 05:57] LABS: Basophils % (manual) 0 (0.0-2.0); Blast Cells 0; Eosinophils % (manual) 0 (0-7); Myelocytes % 0; Promyelocytes % 0; Reactive Lymphocytes 0
[2020-12-12] MEDS: InsuLIN REG 1unit/0.01ml Soln (100units/ml) SC SCH ×4 (06:09→23:52)
[2020-12-12 06:18] LABS: Phosphorus 9.6 mg/dL (2.5-4.90)
[2020-12-12] MEDS: ALBUTEROL SULF 2.5 MG/0.5ML(0.5%) NEB SOLN NEB SCH ×3 (06:22→22:06)
[2020-12-12] MEDS: BUDESONIDE (INHALATION) 0.5 MG/2 ML NEB NEB SCH ×2 (06:22→22:06)
[2020-12-12] MEDS: IPRATROPIUM BROM 0.5 MG/2.5ML INH SOL NEB SCH ×3 (06:22→22:06)
[2020-12-12 06:43] LABS: Band Neutrophils % (manual) 29; Lymphocytes % (manual) 3 (10.0-50.0); Metamyelocytes % 2; Monocytes % (manual) 4 (0-12)
[2020-12-12] MEDS: MIDAZOLAM DRIP 50 mg/50mL 50 ML IV SCH (09:09)
[2020-12-12] MEDS ORDERED: CALCIUM ACETATE 667 MG CAP PO ONE (09:15)
[2020-12-12] MEDS ORDERED: SODIUM BICARBONATE 8.4 % INJ 50ML VIAL IV ONE (09:15)
[2020-12-12] MEDS: AMIODARONE 450mg/250ml AE 250 ML IV SCH (11:58)
[2020-12-12] MEDS: fentaNYL Drip 2500mCg/250mlNS 250 ML IV SCH (14:00)
[2020-12-12] MEDS: CHOLECALCIFEROL (VITD3) 2,000 UNIT CAP/TAB PO SCH (14:10)
[2020-12-12] MEDS: PANTOPRAZOLE 40 MG/10 ML VIAL INJ IV SCH (14:10)
[2020-12-12] MEDS: ASCORBIC ACID 1,000 MG TAB PO SCH (14:10)
[2020-12-12] MEDS: MEROPENEM 1GM IVPB 100 ML IV SCH ×2 (14:11→21:52)
[2020-12-12] MEDS: ENOXAPARIN SOD 120 MG/0.8 ML SYRINGE SC SCH (14:11)
[2020-12-12] MEDS: ZINC SULFATE 220mg CAP or TAB PO SCH (14:11)
[2020-12-12] MEDS: DexAMETHasone SOD PHOS 10MG/1ML VIAL INJ IV SCH (14:12)
[2020-12-12] MEDS: CALCIUM ACETATE 667 MG CAP PO SCH ×2 (14:15→18:14)
[2020-12-12 14:31] LABS: Hepatitis A Ab IgM Negative
[2020-12-12 14:32] LABS: Hepatitis B Core IgM Negative; Hepatitis B Surface Antigen Negative (Negative); Hepatitis C Antibody Negative (Negative)
[2020-12-12] MEDS: SODIUM BICARBONATE 50ML VIAL 150 ML in D5W 5% 1,000 ML IV SCH (16:31)
[2020-12-12] MEDS ORDERED: TPN PER PHARMACY IV NR ×6 (20:00)
[2020-12-12] MEDS: VASOPRESSIN 50 UNITS in D5W 5% 247.5 ML IV SCH (22:08)
[2020-12-13] VITALS (105 sets, daily range): BP systolic 24–123; BP diastolic 6–49
[2020-12-13] MEDS: AMIODARONE 450mg/250ml AE 250 ML IV SCH ×2 (02:22→16:00)
[2020-12-13] MEDS: PHENYLEPHRINE INJ 80 MG in SODIUM CHL 0.9% 242 ML IV SCH ×4 (02:23→22:51)
[2020-12-13] MEDS: LINEZOLID 600MG/300ML 300 ML IV SCH ×2 (05:08→17:22)
[2020-12-13] MEDS: BUMETANIDE 2.5mg/10ml (0.25 mg/ml) INJ IV SCH ×2 (05:52→18:00)
[2020-12-13 06:29] LABS: Hemoglobin 10.4 g/dL (13.5-17.5); Mean Corpuscular Hemoglobin 28.7 pg (28.0-32.0); Mean Corpuscular Hgb Conc. 31.6 g/dL (32.0-36.0); Mean Corpuscular Volume 90.9 fL (80.0-100.0); Red Blood Cells 3.63 10^6/uL (4.5-5.90); Red Cell Distribution Width 16.1 % (11.8-14.3)
[2020-12-13 06:31] LABS: White Blood Cell 38.3 10^3/uL (4.4-10.8)
[2020-12-13] MEDS: IPRATROPIUM BROM 0.5 MG/2.5ML INH SOL NEB SCH ×3 (06:33→22:03)
[2020-12-13] MEDS: ALBUTEROL SULF 2.5 MG/0.5ML(0.5%) NEB SOLN NEB SCH ×3 (06:33→22:03)
[2020-12-13] MEDS: ACCU-CHEK COMFORT CURVE STRIP VI SCH ×3 (06:33→18:21)
[2020-12-13] MEDS: InsuLIN REG 1unit/0.01ml Soln (100units/ml) SC SCH ×3 (06:34→18:20)
[2020-12-13] MEDS: BUDESONIDE (INHALATION) 0.5 MG/2 ML NEB NEB SCH ×2 (06:34→22:04)
[2020-12-13 06:48] LABS: Albumin 1.7 g/dL (3.4-5.0); Anion Gap 19 (5-15); Blood Urea Nitrogen 74 mg/dL (7-18); Calcium 6.4 mg/dL (8.5-10.1); Carbon Dioxide 19 mmol/L (21-32); Chloride 86 mmol/L (98-107); Glucose 250 mg/dL (74-106); Magnesium 2.8 mg/dL (1.6-2.6); Sodium 124 mmol/L (136-145)
[2020-12-13 07:08] LABS: Basophils % (manual) 0 (0.0-2.0); Blast Cells 0; Eosinophils % (manual) 0 (0-7); Metamyelocytes % 0; Myelocytes % 0; Promyelocytes % 0; Reactive Lymphocytes 0
[2020-12-13] MEDS: SODIUM BICARBONATE 50ML VIAL 150 ML in D5W 5% 1,000 ML IV SCH ×3 (07:22→22:52)
[2020-12-13 08:06] LABS: Band Neutrophils % (manual) 4; Lymphocytes % (manual) 11 (10.0-50.0); Monocytes % (manual) 10 (0-12)
[2020-12-13 08:22] LABS: Alkaline Phosphatase 132 U/L (45-117); GFR African American 11 mL/min; GFR Non-African American 9 mL/min
[2020-12-13 08:23] LABS: Alanine Aminotransferase 9174 U/L (16-61); Bilirubin, Total 1.5 mg/dL (0.2-1.0)
[2020-12-13 08:29] LABS: Potassium 5.8 mmol/L (3.5-5.1)
[2020-12-13] MEDS: NOREPINEPHRINE 8 MG/250ML KIT 250 ML IV SCH ×3 (08:40→22:51)
[2020-12-13] MEDS: CALCIUM ACETATE 667 MG CAP PO SCH ×3 (08:48→18:02)
[2020-12-13] MEDS: ENOXAPARIN SOD 120 MG/0.8 ML SYRINGE SC SCH (08:48)
[2020-12-13] MEDS: ASCORBIC ACID 1,000 MG TAB PO SCH (08:48)
[2020-12-13] MEDS: PANTOPRAZOLE 40 MG/10 ML VIAL INJ IV SCH (08:48)
[2020-12-13] MEDS: ZINC SULFATE 220mg CAP or TAB PO SCH (08:48)
[2020-12-13] MEDS: CHOLECALCIFEROL (VITD3) 2,000 UNIT CAP/TAB PO SCH (08:48)
[2020-12-13] MEDS: DexAMETHasone SOD PHOS 10MG/1ML VIAL INJ IV SCH (08:49)
[2020-12-13] MEDS: MEROPENEM 1GM IVPB 100 ML IV SCH ×2 (09:43→21:21)
[2020-12-13] MEDS ORDERED: CALCIUM GLUC 1,000mg/50ml-NS 50 ML IV ONE (10:00)
[2020-12-13] MEDS ORDERED: ALBUTEROL SULF 2.5 MG/0.5ML(0.5%) NEB SOLN NEB ONE (10:00)
[2020-12-13] MEDS ORDERED: SODIUM ZIRCONIUM CYCL 10 GM PAK PO ONE (10:00)
[2020-12-13 12:21] LABS: Aspartate Aminotransferase > 10000 U/L (15-37)
[2020-12-13] MEDS: PROPOFOL 100 ML IV SCH (14:00)
[2020-12-13] MEDS: MIDAZOLAM DRIP 50 mg/50mL 50 ML IV SCH (14:00)
[2020-12-13] MEDS: fentaNYL Drip 2500mCg/250mlNS 250 ML IV SCH (14:00)
[2020-12-13] MEDS: SODIUM ZIRCONIUM CYCL 10 GM PAK PO SCH ×2 (14:35→21:21)
[2020-12-13] MEDS: VASOPRESSIN 50 UNITS in D5W 5% 247.5 ML IV SCH (17:28)
[2020-12-13] MEDS ORDERED: TPN PER PHARMACY IV NR ×8 (20:00)
[2020-12-13] MEDS ORDERED: CALCIUM CHLOR(10%) 100MG/ML 10ML SYRINGE IV ONE (23:39)
[2020-12-13] MEDS ORDERED: EPINEPHrine HCL 1 MG/10 ML SYRG IV ONE (23:39)
[2020-12-13] MEDS ORDERED: SODIUM BICARBONATE 8.4% INJ 50ML SYRINGE IV ONE (23:39)
== END 2020-12-13 23:40 | DRG 870 ==
LOC: ER 12:37 → TELE 16:20 → ICU CENTRL 11-26 08:18 → DOU IN ICU 11-26 10:58
PROVIDERS: ADMIT Nurse Practitioner Acute Care; ATTEND Internal Medicine
PROC: XW033E5 Introduction of Remdesivir Anti-infective into Peripheral Vein, Percutaneous Approach, New Technology Group 5 (ICD-10-PCS; 2020-11-26)
PROC: XW13325 Transfusion of Convalescent Plasma (Nonautologous) into Peripheral Vein, Percutaneous Approach, New Technology Group 5 (ICD-10-PCS; principal; 2020-11-27)
PROC: 05HD33Z Insertion of Infusion Device into Right Cephalic Vein, Percutaneous Approach (ICD-10-PCS; 2020-11-27)
PROC: XW033H5 Introduction of Tocilizumab into Peripheral Vein, Percutaneous Approach, New Technology Group 5 (ICD-10-PCS; 2020-11-27)
PROC: 5A09557 Assistance with Respiratory Ventilation, Greater than 96 Consecutive Hours, Continuous Positive Airway Pressure (ICD-10-PCS; 2020-11-28)
PROC: 5A1955Z Respiratory Ventilation, Greater than 96 Consecutive Hours (ICD-10-PCS; 2020-12-08)
PROC: 06HY33Z Insertion of Infusion Device into Lower Vein, Percutaneous Approach (ICD-10-PCS; 2020-12-08)
PROC: 0BH17EZ Insertion of Endotracheal Airway into Trachea, Via Natural or Artificial Opening (ICD-10-PCS; 2020-12-08)
PROC: B548ZZA Ultrasonography of Superior Vena Cava, Guidance (ICD-10-PCS; 2020-12-08)
PROC: 04HY32Z Insertion of Monitoring Device into Lower Artery, Percutaneous Approach (ICD-10-PCS; 2020-12-08)
PROC: 06HY33Z Insertion of Infusion Device into Lower Vein, Percutaneous Approach (ICD-10-PCS; 2020-12-10)
PROC: 5A1D70Z Performance of Urinary Filtration, Intermittent, Less than 6 Hours Per Day (ICD-10-PCS; 2020-12-10)
PROC: 5A1D70Z Performance of Urinary Filtration, Intermittent, Less than 6 Hours Per Day (ICD-10-PCS; 2020-12-11)
PROC: 05HA33Z Insertion of Infusion Device into Left Brachial Vein, Percutaneous Approach (ICD-10-PCS; 2020-12-12)
PROC: 5A1D70Z Performance of Urinary Filtration, Intermittent, Less than 6 Hours Per Day (ICD-10-PCS; 2020-12-12)
PROC: 5A1D70Z Performance of Urinary Filtration, Intermittent, Less than 6 Hours Per Day (ICD-10-PCS; 2020-12-13)
PROC: 5A12012 Performance of Cardiac Output, Single, Manual (ICD-10-PCS; 2020-12-13)
DX: A41.89 Other specified sepsis (principal); U07.1 COVID-19; J96.01 Acute respiratory failure with hypoxia; I21.4 Non-ST elevation (NSTEMI) myocardial infarction; J12.82 Pneumonia due to coronavirus disease 2019; R65.21 Severe sepsis with septic shock; N17.0 Acute kidney failure with tubular necrosis; K72.00 Acute and subacute hepatic failure without coma; G93.41 Metabolic encephalopathy; D68.59 Other primary thrombophilia; D89.833 Cytokine release syndrome, grade 3; E87.1 Hypo-osmolality and hyponatremia; G93.1 Anoxic brain damage, not elsewhere classified; I82.442 Acute embolism and thrombosis of left tibial vein; E66.01 Morbid (severe) obesity due to excess calories; E87.5 Hyperkalemia; I11.0 Hypertensive heart disease with heart failure; Z68.38 Body mass index [BMI] 38.0-38.9, adult; I46.9 Cardiac arrest, cause unspecified
CPT/HCPCS: 36415; 36600; 71045; 76775; 80053; 80074; 81001; 82040; 82728; 82805; 82962; 83605; 83615; 83735; 83880; 84100; 84132; 84478; 84484; 85007; 85025; 85027; 85049; 85379; 86141; 86850; 86900; 86901; 87040; 87070; 87205; 87426; 87493; 90935; 93005; 93306; 93970; 93971; 94002; 94003; 94640; 94660; 94668; 96365; 96366; 96375; C9113; G0378; J0330; J0610; J0696; J1100; J1642; J1815; J1885; J2185; J2250; J2543; J2704; J7060; J7131